=== PATIENT | female | born 1985 | race Two or more races ===

== ENCOUNTER 2025-01-22 22:41 | Emergency (ER) | payer OTHER ==
[~2025-01-22] VITALS: Ht 170.2 cm; Wt 81.6 kg
[2025-01-22 22:47] VITALS: BP 127/80
[2025-01-22] MEDS ORDERED: ONDANSETRON 4 MG/2 ML VIAL ONE (23:08)
[2025-01-22] MEDS ORDERED: MORPHINE SULFATE 2 MG/1 ML DISP.SYRIN ONE (23:08)
[2025-01-22] MEDS: MORPHINE SULFATE 2 MG/1 ML DISP.SYRIN IV ONE ×2 (23:37→23:45)
[2025-01-22] MEDS: ONDANSETRON 4 MG/2 ML VIAL IV ONE (23:38)
[2025-01-22 23:43] LABS: *BILIRUBIN,URIN NEGATIVE (NEGATIVE); *BLOOD, URINE NEGATIVE (NEGATIVE); *COLOR,URINE YELLOW (YELLOW); *KETONES,URINE 1+ (NEGATIVE); *PROTEIN,URINE 2+ (NEGATIVE); *UROBILINOGEN,URINE 0.2 E.U./dl (NORMAL); LEUKOCYTE ESTERASE ,URINE NEGATIVE (NEGATIVE); NITRITE, URINE NEGATIVE (NEGATIVE); UGLUCOSE NEGATIVE (NEGATIVE)
[2025-01-22 23:45] LABS: *CLARITY,URINE HAZY (CLEAR)
[2025-01-22 23:46] LABS: *URINE HCG, QUAL NEGATIVE (NEGATIVE)
[2025-01-22 23:51] LABS: SQUAMOUS EPITHELIAL CELL,UR MANY /HPF (NONE SEEN); URINE AMORPHOUS PHOSPHATES FEW /HPF
[2025-01-23] MEDS ORDERED: ONDA4TAB11 PO (00:35)
[2025-01-23 00:50] VITALS: BP 127/80; TEMP 98; O2SAT 98
== END 2025-01-23 00:51 | disposition left against medical advice (07) ==
LOC: ER 22:52
DX: R10.32 Left lower quadrant pain (principal); R10.31 Right lower quadrant pain; R11.0 Nausea; Z88.0 Allergy status to penicillin
CPT/HCPCS: 84703; 87086; A4606; A4663; J2270; J2405